=== PATIENT | female | born 1965 | race Two or more races ===

== ENCOUNTER 2023-06-20 06:32 | Emergency (ER) | payer OTHER ==
[2023-06-20] MEDS ORDERED: ONDANSETRON *ODT* 4 MG TABLET SL ONE (06:55)
[2023-06-20 06:56] VITALS: BP 101/62; PULSE 55; RESP 16; TEMP 97.9; BMI 19.7
[2023-06-20] MEDS ORDERED: MECLIZINE HCL 25 MG TABLET (FP) PO ONE (06:58)
[2023-06-20] MEDS ORDERED: ONDANSETRON *ODT* 4 MG TABLET ONE (06:59)
[2023-06-20] MEDS ORDERED: MECLIZINE HCL 25 MG TABLET (FP) ONE (07:02)
== END 2023-06-20 08:48 | disposition home or self-care (01) ==
LOC: FER 06:32
DX: R42 Dizziness and giddiness (principal); R11.0 Nausea
CPT/HCPCS: 70450-TC; 99284-25; Q0162